=== PATIENT | male | born 1975 | race Caucasian/White ===

== ENCOUNTER 2017-04-03 09:23 | Inpatient (IN) | payer MEDICAID ==
[~2017-04-03] VITALS: Ht 167.6 cm; Wt 81.4 kg
[~2017-04-03 09:23] MED LIST: BACTRIM DS1 TAB PO; CLINDAMYCIN HC300 MG PO; LAC PO; METOPROLOL TART25 M1 PO
--- NOTE | 2017-04-03 09:56 | NUR ---
PT HERE WITH C/C OF HIGH BP. PER PT: PCP RECOMMENDED TO GO TO ER YESTERDAY. PT IS AAOX4, ANSWERS ALL QUESTIONS APPROPRIATELY, FOLLOWS COMMANDS, NO FACIAL DROOP NOTED, EQUAL APRON OPERATOR AND STRENGTH TO EXTREMITIES. DENIES HEADACHE, BLURRY VISION, OR TINNITUS. RESP EVEN AND UNLABORED, RA. DENIES SOB, DENIES CHEST PAIN. DENIES ABD PAIN, N/V/D, OR UTI SYMPTOMS. PT ACCOMPANIED BY FAMILY
--- NOTE | 2017-04-03 10:30 | NUR ---
LAB AT BEDSIDE
--- NOTE | 2017-04-03 10:38 | NUR ---
RADIOLOGY AT BEDSIDE FOR PCXR
--- NOTE | 2017-04-03 10:40 | NUR ---
EMT AT BEDSIDE FOR EKG
[2017-04-03 10:48] LABS: BASOPHIL % 0.4 % (0-2); PLATELET COUNT 169 x10^3mcL (130-400)
[2017-04-03 10:49] LABS: BILIRUBIN TOTAL 0.5 mg/dL (0.20-1.00); CARBON DIOXIDE 18.3 mmol/L (21-32); POTASSIUM SERUM 5.1 mmol/L (3.5-5.1); TOTAL PROTEIN, SERUM 6.3 g/dL (6.4-8.2)
[2017-04-03 10:50] LABS: ALBUMIN 2.3 g/dL (3.4-5.0)
[2017-04-03 10:52] LABS: CREATININE SERUM 5.3 mg/dL (0.7-1.3)
--- NOTE | 2017-04-03 11:27 | NUR ---
PT REMAINS HYPERTENSIVE, OTHERWISE VS STABLE. NAD NOTED. RESP EVEN AND UNLABORED, RA.
--- NOTE | 2017-04-03 11:45 | NUR ---
DR MARQUES MADE AWARE PT REMAINS HYPERTENSIVE. DR GIVES VERBAL ORDER FOR NORMODYNE 10MG IV.
[2017-04-03 12:32] LABS: AMPHETAMINE QUAL UR NONE DETECTED (NEG <=1000)
[2017-04-03 12:51] LABS: microscopic required? YES; urine erythrocyte 3+ (NEGATIVE)
[2017-04-03 13:18] LABS: CHOLESTEROL/HDL RATIO 4.1; PHOSPHOROUS 7.5 mg/dL (2.5-4.9)
--- NOTE | 2017-04-03 13:20 | NUR ---
BED ASSIGNMENT RECEIVED FOR PT. REPORT GIVEN TO JESSICA RICKETTS IN [facility] FOR CONTINUITY OF CARE
[2017-04-03 13:27] LABS: T3 TOTAL 1.1 ng/mL
[2017-04-03 13:30] LABS: FREE T4 0.99 ng/dL (0.76-1.46); FREE THYROXINE INDEX 2.5 ug/dL (1.4-4.5); T4(THYROXINE) 6.4 ug/dL (4.7-13.3)
[2017-04-03 14:38] VITALS: BP 204/129
--- NOTE | 2017-04-03 14:47 | NUR ---
RECEIVED PT FROM ED VIA PRASANTH. ORIENTED PT TO ROOM AND SURROUNDINGS. IV NOTED TO LAC PATENT AND INTACT .TELE 34 PLACED ON PT READING NSR. INSTRUCTED PT ON THE USE OF CALL LIGHT FOR ASSISTANCE. ENDORSED PT TO PRIMARY NURSE JESSICA
--- NOTE | 2017-04-03 15:25 | NUR ---
RESIDENT NOTIFIED TROP 0.20.
--- NOTE | 2017-04-03 15:33 | NUR ---
US RENAL AND ESCITES EVAL COMPLETED. PT SITTING UP HAVING A SNACK.
--- NOTE | 2017-04-03 16:01 | NUR ---
CORRECTION ON PREVIOUS NOTE. PT DID NOT HAVE US RENAL COMPLETED. HE HAD ECHO DONE. WILL HAVE RENAL DOPPLER IN THE AM PT HAS ALREADY EATEN. LORI BP POST HYDRALIZINE PO 192/120 HR 97.
--- NOTE | 2017-04-03 16:03 | NUR ---
SEEN BY DR. CHANDLER. WANTS ANOTHER TROP. BEFORE POSSIBLY STARTING HEPARIN DRIP.
[2017-04-03 16:54] VITALS: BP 192/130
--- NOTE | 2017-04-03 17:46 | NUR ---
SITTING UP IN BED FINISHING DINNER. 1800 TROP DRAWN. NS INFUSING 20 CC HOUR. WEARING SCD'S. DENIES ANY CHEST PAIN. RECEIVING APRESOLINE 10 MG PO Q 6 HOURS FOR ELEVATED BP. RENAL DOPPLER IN AM. NPO AFTER MIDNIGHT. INDEPENDENT W ADL'S. CALL LIGHT WITHIN REACH. ALERT AND ORIENTED. BREATHING FREELY ON RA. TELE# 34 NSR.
[2017-04-03 19:40] VITALS: BP 154/115
--- NOTE | 2017-04-03 19:50 | NUR ---
RECEIVED PATIENT FROM AM RN-BULMARO. PATIENT QUIETLY RESTING IN BED AT THIS TIME. A/OX4 ABLE TO VERBALIZE NEEDS. DENIES ANY PAIN, CHEST PAIN, HEADACHE, DIZZINESS AT THIS TIME. EDEMA TO BLE. IVF INFUSING TO LAC AT 20ML/HR NS. TELE 34 NSR. PATIENT AWARE THAT HE IS TO BE NPO AFTER MIDNIGHT FOR RENAL DOPPLER SCHEDULED TMW MORNING. CALL LIGHT WITHIN REACH AND PATIENT EDUCATED ON HOW TO USE DEVICE. WILL CONTINUE TO MONITOR.
--- NOTE | 2017-04-03 20:34 | NUR ---
SCHEDULED MEDICATIONS ADMINISTERED. PATIENT DENIES ANY PAIN, DIZZINESS, HEADACHE. NO SOB VERBALIZED. NO SWALLOWING DIFFICULTY. CALL LIGHT WITHIN REACH.
[2017-04-03 21:48] VITALS: BP 177/103
--- NOTE | 2017-04-03 22:26 | NUR ---
BLADDER SCAN DONE PER DR. AGUILAR'S ORDERS. NO FLUID NOTED IN BLADDER. ALSO RECEIVED NEW ORDERS
[2017-04-04 00:04] VITALS: BP 158/95
--- NOTE | 2017-04-04 01:34 | NUR ---
PATIENT QUEITLY RESTING IN BED AT THIS TIME. LAST BP 158/95 HR 81, DR. MOULTON INFORMED OF LATEST BP AND SAYS HES OKAY WITH THAT BP AT THIS TIME. WILL CONTINUE TO MONITOR CLOSELU. CALL LIGHT WITHIN REACH.
[2017-04-04 05:26] VITALS: BP 137/88
[2017-04-04 07:11] LABS: CARBON DIOXIDE 16.8 mmol/L (21-32); POTASSIUM SERUM 4.4 mmol/L (3.5-5.1)
[2017-04-04 07:15] LABS: CREATININE SERUM 5.4 mg/dL (0.7-1.3)
--- NOTE | 2017-04-04 07:31 | NUR ---
LAB REPORTED CREATININE 5.4. DELIVERED LAB RESULTS TO DR. Trevor SINGER IN CLASS ROOM. PT WAS SEEN BY DIETITIAN CHIEF, DR. AGUILAR 04/03/17.
--- NOTE | 2017-04-04 08:00 | NUR ---
ALERT AND ORIENTED. SITTING UP IN BED EATING BREAKFAST. DENIES ANY PAIN. BREATHING FREELY ON RA. ABD SOFT AND ROUND. TELE # 34 NSR. STARTED 24 HOUR URINE COLLECTION FOR PROTEIN. INDEPENDENT W/ ADL'S. LST BP 137/88. WILL CONTINUE TO MONITOR. CALL LIGHT WITHIN REACH.
[2017-04-04 08:02] LABS: MAGNESIUM 2.1 mg/dL (1.8-2.4); PHOSPHOROUS 7.9 mg/dL (2.5-4.9)
[2017-04-04 08:11] LABS: BASOPHIL % 0.4 % (0-2); PLATELET COUNT 168 x10^3mcL (130-400)
[2017-04-04 08:26] LABS: RED BLOOD CELLS 2.2 M/mm3 (4.52-5.90)
--- NOTE | 2017-04-04 08:40 | NUR ---
REPORTED H/H 6.04/[address] CANO.
--- NOTE | 2017-04-04 11:11 | NUR ---
PT IS NON COMPLANT WITH URINE COLLECTION. SPOKE WITH DR. RAMACHANDRAN. RECEIVED NEW ORDERS.
[2017-04-04 11:30] VITALS: BP 140/89
[2017-04-04 12:55] VITALS: BP 169/100
[2017-04-04 15:04] LABS: microscopic required? YES; urine erythrocyte 2+ (NEGATIVE)
[2017-04-04 15:10] LABS: CREATININE UR 109.3 mg/dL
[2017-04-04 16:35] VITALS: BP 150/98
--- NOTE | 2017-04-04 17:51 | NUR ---
RESTING QUIETLY AND COMFORTABLY. NS INFUSING 10 CC HOUR. URINE SENT TO LAB FOR STUDIES. RESULTS ARE BACK PLEASE REVIEW. GOOD APPETITE. BRP. LAST BP 150/98 HR 90. NO C/O PAIN. 24 HOUR URINE NOT COLLECTED PT WAS NOT COMPLIANT WITH MEASURING ALL URINE. STAFF RADIATION THERAPIST AWARE. RENAL DOPPLER COMPLETED THIS AM.ECHOGENIC KIDNEYS CONSISTENT WITH MEDICAL RENAL DISEASE.
[2017-04-04 19:30] VITALS: BP 182/115
--- NOTE | 2017-04-04 19:30 | NUR ---
RECEIVED PATIENT BACK FROM AM NETTA. PATIENT QUIETLY RESTING IN BED. TELE 34 SR. DENIES ANY CHEST PAIN AT THIS TIME. ABLE TO VOID FREELY VIA URINAL. PATIENT AWARE OF NEED FOR STRICT I&OS. CALL LIGHT WITHIN REACH. IVF INFUSING TO LAC AT 10ML/HR NS. NO INFILTRATION NOTED.
[2017-04-05] VITALS (7 sets, daily range): BP systolic 128–179; BP diastolic 75–101
--- NOTE | 2017-04-05 02:00 | NUR ---
INFORMED DR. VASQUEZ OF MOST RECENT BP: 147/[address] CHRISTINA LOPES WITH BP AT THIS TIME.
[2017-04-05 05:34] LABS: BASOPHIL % 0.4 % (0-2); PLATELET COUNT 206 x10^3mcL (130-400)
[2017-04-05 05:50] LABS: CALCIUM 7.3 mg/dL (8.5-10.1); CARBON DIOXIDE 18.9 mmol/L (21-32); MAGNESIUM 2.2 mg/dL (1.8-2.4); PHOSPHOROUS 7.8 mg/dL (2.5-4.9); POTASSIUM SERUM 4.5 mmol/L (3.5-5.1)
--- NOTE | 2017-04-05 05:50 | NUR ---
BLADDER SCAN DONE ONLY 41CC OF URINE NOTED. ABD NOTED TO BE DISTENDED AND ROUND. PATIENT DENIES ANY PAIN.
[2017-04-05 05:52] LABS: CREATININE SERUM 5.3 mg/dL (0.7-1.3)
--- NOTE | 2017-04-05 07:20 | NUR ---
ALERT AND ORIENTED. BREATHING FREELY ON RA. DENIES ANY PAIN. TELE # 34 NSR. LAST BP THIS AM 128/75. INDEPENDENT W ADL'S. STRICT I&O'S. URINAL AT BEDSIDE. NEEDS TO BE REMINDED HOW IMPORTANT IT IS TO USE URINAL. CALL LIGHT WITHIN REACH.
--- NOTE | 2017-04-05 18:34 | NUR ---
ALERT AND ORIENTED. NO C/O PAIN. TELE # 34 SR. ABD ROUND. INDEPENDENT W ADL'S. LAST BP 149/79. CONSENT SIGNED FOR RENAL BIOPSY IN AM. NS INFUSING 10 CC HOUR. CALL LIGHT WITHIN REACH.
--- NOTE | 2017-04-05 19:37 | NUR ---
DR. RAMACHANDRAN ([facility]) CONSULTATION DOCTOR IN TO SEE PATIENT.
--- NOTE | 2017-04-05 20:35 | NUR ---
SCHEDULED MEDICATIONS ADMINISTERED. NO SWALLOWING DIFFICULTY. PATIENT CONTINUES TO DENY ANY CHEST PAIN OR SOB. NO DIZZINESS OR HEADACHE NOTED.
--- NOTE | 2017-04-05 22:43 | NUR ---
DR. VASQUEZ AWARE OF CURRENT BP: 164/89 HR:95. NO NEW ORDERS RECEIVED. WILL CONTINUE TO MONITOR.
[2017-04-06 05:43] VITALS: BP 141/81
--- NOTE | 2017-04-06 05:55 | NUR ---
PATIENT QUIETLY RESTING IN BED. BLOOD PRESSURE THIS MORNING STABLE. CONTINUES TO DENY ANY CHEST PAIN. ABD ROUND AND FIRM (DISTENDED). DENIES ANY PAIN. IVF INFUSING TO LAC AT 10ML/HR NS. CALL LIGHT WITHIN REACH AND ALL SAFETY MEASURES IN PLACE. WILL ENDORSE CARE TO AM RN.
[2017-04-06 06:18] LABS: CALCIUM 7.8 mg/dL (8.5-10.1); CARBON DIOXIDE 16.9 mmol/L (21-32); MAGNESIUM 2.2 mg/dL (1.8-2.4); PHOSPHOROUS 7.8 mg/dL (2.5-4.9); POTASSIUM SERUM 4.3 mmol/L (3.5-5.1)
[2017-04-06 06:20] LABS: BASOPHIL % 0.5 % (0-2); PLATELET COUNT 195 x10^3mcL (130-400); RED CELL DISTRIBUTION WIDTH 15.1 % (11.5-14.5)
[2017-04-06 06:39] LABS: CREATININE SERUM 5.4 mg/dL (0.7-1.3)
--- NOTE | 2017-04-06 08:00 | NUR ---
RCEIVED PATIENT AWAKE AND ANXIOUS AND STATES WANTS TO GO [facility] TODAY. AYDE LILLY BEEN NPO FOR NEDDLE BIOPSY AND PATIENT HAS BEEN SEEN AND THE TESTING PLANNE FOR TODAY. LUNGS ARE DIMINISHED AND BOWEL SOUNDS ARE HYPOACTIVE AND PATIENT HAS DISTENDED ABDOMEN AND FIRM. PATEINT DENIES PAIN AT THIS TIME. NOTED EDEMA FO TRACE TO THE LOWER EXTREMITIES AND SOME JAUNDICE APPEARANCE FO THE SKIN. PATIENT IS AMBULATORY AND VITALS AT THIS TIME AT 97.9, 91, 18, 140/81, 97%. PATIEN THAS H AND H AT 7.3/23, NA AT 134, BUN AT 39.0, AND CREATININE AT 5.4. AYDE ESTELLE BEEN WITH HISTRY OF HTN AND THE BP HAS BEEN NOTED VERY HIGH ON PREVIOUS SHIFTS AND IS ONHYDROLIZINE AND RECEIVES THREE TIMES A DAY ON THIS SHIFT AYDE TON ATIVAN ORDERED FOR ALCOHOL WITHDRAWL AND HISTORY OF ETOH ABUSE. PATIENT REMAINS NPO AT THIS TIME FOR THE TESTING.
--- NOTE | 2017-04-06 08:40 | NUR ---
SEEN BY DR ANDERSON AND STAFF AND PLAN OF CARE DISCUSSED.
[2017-04-06 09:28] VITALS: BP 149/90
--- NOTE | 2017-04-06 11:31 | NUR ---
RECEIVED A CALL FROM RADIOLOGY AND THE TEST FOR NEEDLE BIOPSY WILL NOT BE DONE TILL TOMORROW DUE TO THE NEED FOR PATHOLOGIST TO BE HERE AT THE TIME OF TESTING. ADVISED THE CHARGE ADN CALLED THE PHP PROGRAMMER AND ADVISED OF THE PATHOLOGIST WILL NOT BE AVAILABLE TILL TOMORROW AT 11:00AM. PER THE PHP PROGRAMMER THE PATIENT WILL BE ALLOWED TO EAT TODAY. PATIENT STATES HE IS VERY HUNGERY.
--- NOTE | 2017-04-06 14:48 | NUR ---
IV WAS LAEKING TO RESTART AT [facility] SITE. PATIENT TOLERATED LUNCH.
--- NOTE | 2017-04-06 15:30 | NUR ---
NEPHROLOGY IN TO SEE AND WANTS A PARENTESIS PIRIOR TO THE NEEDLE BIOPSY OF THE KIDNEY THE COMMUNITY ENGAGEMENT COORDINATOR SPOME WITH THE MOUNT LOADER DR HANCOCK. SO MOUNT LOADER IS AWARE OF THE INDICATION FOR THE PROCEDURE PRIOR TO KIDNEY BIOPSY. AWAITING ORDERS AT THIS TIME PLAN IS FOR THE BIOPSY FOR AROUND 11:00AM TOMORROW.
--- NOTE | 2017-04-06 17:28 | NUR ---
PATIENT IS COMFORTABLE AT THIS TIME. PATIENT HAS NOT COMPLAINED OF PAIN TO HE THE ABDOMEN. TOLERATED DIET AND FLUIDS WELL. WILL CONTINUE TO MONITOR.
[2017-04-06 17:45] VITALS: BP 176/100
--- NOTE | 2017-04-06 20:00 | NUR ---
RECEIVED PT IN BED AWAKE, ALERT AND ORIENTED. TELE #34 SR ON THE MONITOR WITH HR OF 90. PULSES PALPABLE, BLE NOTED +2. LUNGS CLEAR AND PT ON ROOM AIR. BOWEL SOUNDS PRESENT. ABOMEN IS FIRM AND DISTENDED. PT VOIDS WITHOUT DIFFICULTY. PT AMBULATES. SKIN INTACT. NO C/O PAIN NOTED AT THIS TIME. IV INFUSING WELL WITH NO INFILTRATION NOTED. INSTRUCTED PT TO USE CALL LIGHT IF NEEDS ASSISTANCE WITH ANYTHING. SEE VASCULAR RADIOLOGIST FOR FURTHER DETAILS. WILL MONITOR PT. CALL LIGHT IN REACH. WILL MONITOR.
--- NOTE | 2017-04-06 21:15 | NUR ---
PAGED DR VASQUEZ REGARDING PT BLOOD PRESSURE 175/105, AWAITING CALL BACK AT THIS TIME.
--- NOTE | 2017-04-06 21:51 | NUR ---
DR CALLED BACK AND NO NEW ORDERS AT THIS TIME. DR STATED TO RECHECK BP ONE HOUR AFTER BP MEDICATIONS WERE GIVEN AND IF STILL ELEVATED HE MAY THEN PUT IN NEW ORDERS. WILL MAKE DR AWARE OF RESULTS AT THAT TIME.
[2017-04-06 22:04] VITALS: BP 179/105
--- NOTE | 2017-04-06 22:54 | NUR ---
MADE DR AWARE OF BP 173/[address] STATED HE WOULD PLACE ORDER FOR HYDRALAZINE IVP. WILL PROVIDE TO PATEINT WHEN MADE AVAILABLE.
--- NOTE | 2017-04-06 23:35 | NUR ---
PT RECEIVED HYDRALAZINE IVP AT THIS TIME WILL MONITOR BP.
[2017-04-07] VITALS (9 sets, daily range): BP systolic 135–180; BP diastolic 77–97
--- NOTE | 2017-04-07 | NUR ---
PT BP IS NOW 165/91, WILL RECHECK IN [address] AWARE IF CONTINUES TO BE ELEVATED.
--- NOTE | 2017-04-07 00:29 | NUR ---
PT BP IS 157/92 AND PT IS COMFORTABLE SLEEPING IN BED. PT STATES "CAN YOU PLEASE NOT BOTHER ME ANYMORE, I AM TRYING TO SLEEP". PT BP IMPROVING WILL CHECK BP AGAIN IN THE A.M. NO DISTRESS NOTED. CALL LIGHT IN REACH.
--- NOTE | 2017-04-07 04:00 | NUR ---
PT SLEEPING COMFORTABLY AT THIS TIME, NO DISTRESS NOTED. WILL MONITOR.
[2017-04-07 06:18] LABS: CALCIUM 7.7 mg/dL (8.5-10.1); CARBON DIOXIDE 18.4 mmol/L (21-32); POTASSIUM SERUM 4.4 mmol/L (3.5-5.1)
[2017-04-07 06:46] LABS: CREATININE SERUM 5.5 mg/dL (0.7-1.3)
--- NOTE | 2017-04-07 06:51 | NUR ---
PT CONTINUES TO REST IN BED AT THIS TIME, NO DISTRESS NOTED. NEW ORDER FOR CONSENT TO BE SIGNED FOR PARACENTISIS. CONSENT SIGNED AND CHECKLIST DONE , PLACED IN THE CHART. PARACENTISIS KIT PLACED AT THE BEDSIDE ORDERED. PT IS STABLE AND WILL ENDORSE TO THE A.M SHIFT NURSE.
[2017-04-07 07:08] LABS: BASOPHIL % 0.6 % (0-2); PLATELET COUNT 179 x10^3mcL (130-400)
[2017-04-07 07:18] LABS: RED CELL DISTRIBUTION WIDTH 14.6 % (11.5-14.5)
--- NOTE | 2017-04-07 07:18 | NUR ---
PT CRITICAL VALUE H/H 6.[address] AND MAKE HIM AWARE. WILL ENDORSE TO AM SHIFT.
--- NOTE | 2017-04-07 07:30 | NUR ---
RECEIVED PT. IN BED A/A/O X3. NO SOB, NO N/V NOTED. DENIES ANY PAIN AT THIS TIME. IV H/L NOTED TO R FA. SCD TO BLE MAINTAINED. BED IN LOW POS., CALL LIGHT WITHIN REACH. SIDE RAILS UP X3.
--- NOTE | 2017-04-07 08:22 | NUR ---
REPORTED H/H (.01/27) TO DR. HANCOCK (DO EYELET PUNCH OPERATOR). NO FURTHER ORDER RECEIVED AT THIS TIME.
--- NOTE | 2017-04-07 08:33 | NUR ---
DR. MCNALLY, THE RESIDENTS, CHARGE NURSE, AND ATTENDING NURSE AT BEDSIDE. CAREPLAN DISCUSSED WITH PT. ALL QUESTIONS ANSWERED.
--- NOTE | 2017-04-07 09:01 | NUR ---
SCHEDULED RENAL BIOPSY FOR 11 AM. HGB/HCT THIS AM 6.01/27. PER PATIENT'S NURSE A PARACENTESIS MUST BE DONE PRIOR TO BIOPSY. NOTIFIED DR MADHAVIR WHO STATES WOULD NEED BLOOD TRANSFUSION PRIOR TO RENAL BIOPSY. PROCEDURE PLACED ON HOLD, NOTIFIED PATIENT'S NURSE SAMAN AND PATHOLOGY DEPT TO NOTIFY DR MCRAE R/T NEED TO RESCHEDULE RENAL BIOPSY.
--- NOTE | 2017-04-07 13:23 | NUR ---
DR. CRUZ, DR. TANG, AND DR. JUNE AT BEDSIDE PERFORMING PARACENTESIS.
--- NOTE | 2017-04-07 14:14 | NUR ---
PARACENTESIS PROCEDURE COMPLETED. PARACENTESIC FLUID WITHDRAWN = 4000CC. B/P= 180/97, P= 88, O2 SAT.= 98% (RA), TEMP.= 98.9, R.R.= 18. WILL CONTINUE TO MONITOR. BANDAGE APPLIED TO RLQ OF ABDOMEN (PARACENTESIC PUNCTURE SITE) BY DR. CRUZ.
--- NOTE | 2017-04-07 15:33 | NUR ---
Initial Nutrition Assessment Dx: Accelerated HTN, Acute Onset Renal Failure PMHx: HTN (non-controlled), LE edema, non-compliancy, alcohol dependence PSHx: None Labs: BG 86, BUN 38 H, Cr 5.5 H, Phosphorous 7.5 H, H/H 6.6/20 L; (04/04) Troponin 0.182 H; (04/03) ALB 2.3 L, AST 48 H, Triglycerides 231 H, A1C <3.8 L Meds: Ativan, Colace, ferrous sulfate, folic acid, Lasix, oscal with vitamin D, phoslo, sodium bicarbonate, theragran-M, vitamin B1, zofran Current Diet Order: NPO except meds (x1 day) (Renal Biopsy) Prior Diet Order: Renal PO Intakes: (04/05) B: 80%, L: 100% Ht: 66", 5' 6". Wt: 179 lb, 81 kg. BMI: 29 kg/m2 (Overweight) IBW: 142 lb, 65 kg. %IBW: 125%. Adj BW: 151 lb, 69 kg. UBW: 165 lb, 75 kg. Age: 41 Y/O M Food Allergies: None Skin: Intact. David 20. Edema: None GI: Active bowel sounds. Last BM 04/06. Pt found with hypertensive urgency 202/122 on admission per doctor's notes. Per doctor's progress note 04/07, met with Dr. Lopez Radio Communications Mechanician who scheduled renal biopsy for today, indicated prior to procedure, would be best to perform paracentesis to both relieve pt's symptoms and establish cause of ascitic fluid; Pt with hypertensive urgency 202/122 on admission, down to 142/82 today, CKD Stage 5, GFR 12 - Per Dr. Lopez, recommends BP control and no dialysis at this time, Dr. Fisher concerned regarding rapidly progressive glomerulonephritis, possible ACSDHF with BNP 980, ascites likely secondary to liver cirrhosis with transaminitis AST 48. Per nursing notes, pt would require blood transfusion prior to renal biopsy, procedure placed on hold, notified pt's RN and pathology department to notify doctor when need to reschedule renal biopsy. Pt is mostly Kosovan-speaking, however, does understand some Belarusian. Cap Parts Cutter assisted RD in translation. Pt was seen resting in bed, just underwent paracentesis procedure, stated that he feels much better, able to breathe better at this time. Pt reported good PO intakes prior, stated that he knows he needs to be on a restricted diet, however, is non-compliant with the diet. Spoke with Dr. Lopez, stated that pt does not need dialysis at this time, does need dietary education. RD acknowledged. Problem with: N: None. V: None. D: None. C: None. Problems with: Chewing: None. Swallowing: None. Prior Appetite: Good Recent Weight Change: +14 lb. % Weight Change: 8.5% weight gain within a few weeks due to fluid accumulation in stomach Vitamin/Supplement use: Per pt, stated he takes "vitamins to cleanse his stomach", unable to specify Diet at Home: Regular, no red meat, cooks with lard Physical Activity: None per pt; Pt reported will want to start exercising Education: Pt stated that he had nutrition education a long time ago but non-compliant with diet. RD provided nutrition education on renal diet with no dialysis, discussed low sodium food options, exercise, and adherence to dietary restrictions. Handouts in Kosovan provided. Pt acknowledged and verbalizes understanding. Estimated Nutritional Needs Based CBW 179 lb, 81 kg. Energy: 8048-0138 kcal/day (25-30 kcal/kg for Maintenance) Protein: 49-65 gm/day (0.6-0.8 gm/kg for Elevated Renal Labs, CKD Stage 5 not on Dialysis) Fluids: Per MD/Doctor for Ascites Nutrition Diagnosis 1. Altered nutrition related labs related to impaired renal function as evidenced by elevated renal labs, BUN 38, Cr 5.5, Phosphorous 7.5 2. Self-monitoring deficit related to unwilling or disinterested in tracking progress as evidenced by pt acknowledging non-compliance to dietary restrictions Intervention 1. Consider advance to Renal, Low Phosphorous, PRO 50 gm diet if/when medically appropriate. 2. Consider Suplena BID (850 kcal, 21 gm protein) if PO intakes <50%. Monitor/Evaluate Goal: NPO <5-7 days; Diet Advancement Monitor: NPO status, diet advancement, labs (renal), skin integrity, GI function F/U in 3-5 days as MODERATE risk (04/10-04/12)
[2017-04-07 15:40] LABS: cnab c-anca <1:20 titer (Neg:<1:20); cnab p-anca <1:20 titer (Neg:<1:20)
[2017-04-07 15:40] LABS: microalbumin:creatinine ratio 2175.9 (0.0-30.0)
--- NOTE | 2017-04-07 15:40 | NUR ---
PARACENTESIC FLUID COLLECTED AND SENT TO LAB. FOR ALL ORDERED TESTS. 1 L OF PARACENTESIC FLUID ALSO SENT TO LAB. FOR STORAGE.
--- NOTE | 2017-04-07 16:00 | NUR ---
PRBC STARTED. B/P= 163/95, P= 97, R.R.= 18, TEMP.= 99.3, O2 SAT.= 98% (RA).
[2017-04-07] MEDS ORDERED: LIPI10 PO (18:42)
[2017-04-07] MEDS ORDERED: ADA30 PO (18:43)
[2017-04-07] MEDS ORDERED: TOP50 PO (18:43)
[2017-04-07 19:01] LABS: APPEARANCE FLUID HAZY; COLOR FLUID YELLOW; SOURCE FLUID PARACENTESIS; WBC FLUID 63 /cumm
[2017-04-07 19:03] LABS: LYMPHOCYTE FLUID 90 %; MONOCYTE FLUID 9 %; RBC FLUID 175 /cumm
--- NOTE | 2017-04-07 19:20 | NUR ---
PRBC COMPLETED. B/P= 170/96, P= 94, R.R.= 18, T= 98.6, O2 SAT.= 100% (RA). NO TRANSFUSION RXN NOTED.
--- NOTE | 2017-04-07 20:04 | NUR ---
SHIFT REASSESSMENT DONE.PATIENT ALERT AND ORIENTED,PRBC WAS JUST DONE,COMPLETED BY SAMAN,ALL PO MEDS POST TRANSFUSION JUST GIVEN,SWALLOWS WELL.PATIENT CBC SCHEDULED NOW AND DONE,PATIENT WANTING TO GO HOME,REMINDED WE HAVE TO WAIT FOR RESULT OF CBC THE PHYSICIAN WILL DECIDE,TELE 354 SR.AMBULATORY,STATED HE HAD BM THIS AM.EDEMA LOWER EXT,HAD PARACENTESIS TODAY 4 LITERS OUT.HTN HX,WILL GIVE MEDS WHEN ITS DUE.CALL LITE IN REACH.
[2017-04-07 20:34] LABS: BASOPHIL % 0.6 % (0-2); PLATELET COUNT 148 x10^3mcL (130-400)
[2017-04-07 20:52] LABS: RED CELL DISTRIBUTION WIDTH 15.6 % (11.5-14.5)
--- NOTE | 2017-04-07 21:28 | NUR ---
PATIENT ALL PM MEDS GIVEN,HTN MES AND ALL.ALSO HGB AND HCT AFTER 1 UNIT PRBC NOW IS 7.5/ FROM 7.3.PATIENT STATED THAT HE HAS HIS CAR IN THE PARKING LOT AND WILL DRIVE SELF.PAPERWORKS BEING DONE AT THIS TIME BY PIPPA.KarenSAYS HE LIVE IN [place].
--- NOTE | 2017-04-07 21:44 | NUR ---
PAPERWORKS DONE.READY TO WHEEL DOWN.ALL PAPERWORKS GIVEN.
--- NOTE | 2017-04-07 21:58 | NUR ---
2150 PATIENT DC AT THIS TIME VIA W/C,WHEELED BY SAJAN,IN STABLE CONDITION.
[2017-04-08 11:06] LABS: ANTI-GLOMERULAR ANTIBODIES 3 units (0-20); COMPLEMENT C3 66 mg/dL (82-167); COMPLEMENT C4 19 mg/dL (14-44)
[2017-04-09 04:23] LABS: CK-BB 0 % (0); CK-MB 0 % (0-3); CK-MM 100 % (97-100); MACRO TYPE 1 0 % (Not Observed); MACRO TYPE 2 0 % (Not Observed)
== END 2017-04-07 21:54 | disposition home or self-care (01) | DRG 194 ==
LOC: ED 09:23 → DU 11:38
PROVIDERS: Emergency Medicine; Family Medicine; Internal Medicine; Internal Medicine Nephrology; ADMIT Family Medicine
PROC: 0W9G3ZZ Drainage of Peritoneal Cavity, Percutaneous Approach (ICD-10-PCS; principal; 2017-04-07)
DX: I13.2 Hypertensive heart and chronic kidney disease with heart failure and with stage 5 chronic kidney disease, or end stage renal disease (principal); N17.0 Acute kidney failure with tubular necrosis; E43 Unspecified severe protein-calorie malnutrition; I50.43 Acute on chronic combined systolic (congestive) and diastolic (congestive) heart failure; N18.5 Chronic kidney disease, stage 5; I24.8 Other forms of acute ischemic heart disease; E87.1 Hypo-osmolality and hyponatremia; E83.51 Hypocalcemia; E78.1 Pure hyperglyceridemia; E83.39 Other disorders of phosphorus metabolism; I16.0 Hypertensive urgency; K70.31 Alcoholic cirrhosis of liver with ascites; F10.10 Alcohol abuse, uncomplicated; D64.89 Other specified anemias; Z68.29 Body mass index [BMI] 29.0-29.9, adult; Z91.14 Patient's other noncompliance with medication regimen
CPT/HCPCS: 83516; 83520; 83880; 84439; 86256; G0480; J0360; J3490; J7030; J7040; P9016; Q0092; Q0163

== ENCOUNTER 2017-04-08 17:24 | Emergency (ER) | payer MEDICAID ==
[~2017-04-08] VITALS: Ht 172.7 cm; Wt 79.4 kg
[~2017-04-08 17:24] MED LIST changes: +ADA30 PO; +LIPI10 PO; +TOP50 PO
[2017-04-08 19:32] VITALS: BP 151/81
== END 2017-04-08 19:32 | disposition home or self-care (01) ==
LOC: ED 17:24
DX: K91.89 Other postprocedural complications and disorders of digestive system (principal); K70.31 Alcoholic cirrhosis of liver with ascites
CPT/HCPCS: J2001

== ENCOUNTER 2017-06-03 20:46 | Inpatient (IN) | payer MEDICAID ==
[~2017-06-03] VITALS: Ht 162.6 cm; Wt 80.7 kg
[2017-06-03 21:53] LABS: PLATELET COUNT 318 x10^3mcL (130-400); RED CELL DISTRIBUTION WIDTH 14.4 % (11.5-14.5)
[2017-06-03 22:08] LABS: MONOCYTE 5 % (0-7); SEGMENTED NEUTROPHILS 88 % (37-75)
[2017-06-03 22:09] LABS: burr cell (echinocyte) 1+; rbc morphology (normal/abnorm) ABNORMAL (NORMAL)
[2017-06-03] MEDS ORDERED: LIPI20 PO (22:11)
[2017-06-03] MEDS ORDERED: NIFEDICAL XL30 MG PO (22:11)
[2017-06-03] MEDS ORDERED: METOPROLOL SUCC50 M2 PO (22:11)
[2017-06-03 22:38] LABS: BILIRUBIN TOTAL 0.35 mg/dL (0.20-1.00); POTASSIUM SERUM 4.9 mmol/L (3.5-5.1); TOTAL PROTEIN, SERUM 7.7 g/dL (6.4-8.2)
[2017-06-03 22:39] LABS: ALBUMIN 3.3 g/dL (3.4-5.0)
[2017-06-03 22:50] LABS: CALCIUM 5.2 mg/dL (8.5-10.1); CARBON DIOXIDE 6.8 mmol/L (21-32); CREATININE SERUM 16.5 mg/dL (0.7-1.3)
[2017-06-04] VITALS (21 sets, daily range): BP systolic 42–149; BP diastolic 23–100
[2017-06-04 00:39] LABS: CALCIUM 6.7 mg/dL (8.5-10.1); POTASSIUM SERUM 3.6 mmol/L (3.5-5.1)
[2017-06-04 01:08] LABS: CARBON DIOXIDE 7.1 mmol/L (21-32); CREATININE SERUM 15.8 mg/dL (0.7-1.3)
[2017-06-04 04:46] LABS: MAGNESIUM 2.1 mg/dL (1.8-2.4)
[2017-06-04 04:47] LABS: PHOSPHOROUS 13.8 mg/dL (2.5-4.9)
[2017-06-04 05:53] LABS: BASOPHIL % 0.2 % (0-2); PLATELET COUNT 336 x10^3mcL (130-400)
[2017-06-04 05:59] LABS: CALCIUM 6.1 mg/dL (8.5-10.1); CARBON DIOXIDE 11.2 mmol/L (21-32); POTASSIUM SERUM 4.2 mmol/L (3.5-5.1)
[2017-06-04 06:00] LABS: RED CELL DISTRIBUTION WIDTH 14.9 % (11.5-14.5)
[2017-06-04 06:03] LABS: rbc morphology (normal/abnorm) ABNORMAL (NORMAL)
[2017-06-04 06:13] LABS: CREATININE SERUM 15.6 mg/dL (0.7-1.3)
[2017-06-04 11:26] LABS: PLATELET COUNT 330 x10^3mcL (130-400); RED CELL DISTRIBUTION WIDTH 14.6 % (11.5-14.5)
[2017-06-04 11:52] LABS: BAND NEUTROPHIL 4 % (0-10); BASOPHIL 0 % (0-2); MONOCYTE 5 % (0-7); SEGMENTED NEUTROPHILS 84 % (37-75); rbc morphology (normal/abnorm) ABNORMAL (NORMAL)
[2017-06-04 11:54] LABS: PLATELET MORPHOLOGY LARGE PLATELET SEEN; burr cell (echinocyte) 1+; schistocyte (helmet cell) 1+
[2017-06-04 17:27] LABS: CARBON DIOXIDE 12.8 mmol/L (21-32); POTASSIUM SERUM 4.2 mmol/L (3.5-5.1)
[2017-06-04 17:42] LABS: MAGNESIUM 1.9 mg/dL (1.8-2.4)
[2017-06-04 17:57] LABS: PHOSPHOROUS 12.8 mg/dL (2.5-4.9)
[2017-06-04 23:05] LABS: CARBON DIOXIDE 25.8 mmol/L (21-32)
[2017-06-04 23:25] LABS: MAGNESIUM 1.4 mg/dL (1.8-2.4); PHOSPHOROUS 6.5 mg/dL (2.5-4.9)
[2017-06-04 23:30] LABS: CREATININE SERUM 8.9 mg/dL (0.7-1.3); POTASSIUM SERUM 2.3 mmol/L (3.5-5.1)
[2017-06-05] VITALS (18 sets, daily range): BP systolic 97–116; BP diastolic 59–77
[2017-06-05 04:20] LABS: CARBON DIOXIDE 21.4 mmol/L (21-32); MAGNESIUM 1.9 mg/dL (1.8-2.4); PHOSPHOROUS 7.3 mg/dL (2.5-4.9)
[2017-06-05 04:21] LABS: POTASSIUM SERUM 2.5 mmol/L (3.5-5.1)
[2017-06-05 04:22] LABS: CALCIUM 5.6 mg/dL (8.5-10.1); CREATININE SERUM 9.4 mg/dL (0.7-1.3)
[2017-06-05 08:09] LABS: POTASSIUM SERUM 3.2 mmol/L (3.5-5.1)
[2017-06-05 08:12] LABS: CREATININE SERUM 9.5 mg/dL (0.7-1.3)
[2017-06-05 08:14] LABS: CALCIUM 5.3 mg/dL (8.5-10.1)
[2017-06-05 08:18] LABS: MAGNESIUM 1.9 mg/dL (1.8-2.4); PHOSPHOROUS 7.5 mg/dL (2.5-4.9)
[2017-06-05 09:02] LABS: RED CELL DISTRIBUTION WIDTH 14.3 % (11.5-14.5)
[2017-06-05 09:15] LABS: PLATELET COUNT 71 x10^3mcL (130-400)
[2017-06-05 09:52] LABS: BAND NEUTROPHIL 5 % (0-10); BASOPHIL 0 % (0-2); MONOCYTE 6 % (0-7); SEGMENTED NEUTROPHILS 84 % (37-75)
[2017-06-05 09:53] LABS: PLATELET MORPHOLOGY PLATELETS DECREASED; rbc morphology (normal/abnorm) ABNORMAL (NORMAL)
[2017-06-05 09:54] LABS: burr cell (echinocyte) 1+
[2017-06-05 09:55] LABS: schistocyte (helmet cell) 1+
[2017-06-05 12:30] LABS: BASOPHIL % 0.2 % (0-2); RED CELL DISTRIBUTION WIDTH 14.5 % (11.5-14.5)
[2017-06-05 12:31] LABS: PLATELET COUNT 80 x10^3mcL (130-400)
[2017-06-05 12:40] LABS: MAGNESIUM 1.8 mg/dL (1.8-2.4); PHOSPHOROUS 7.3 mg/dL (2.5-4.9)
[2017-06-05 12:44] LABS: burr cell (echinocyte) 1+; rbc morphology (normal/abnorm) ABNORMAL (NORMAL); schistocyte (helmet cell) 1+
[2017-06-05 16:59] LABS: MAGNESIUM 1.9 mg/dL (1.8-2.4)
[2017-06-05 20:26] LABS: MAGNESIUM 1.9 mg/dL (1.8-2.4); PHOSPHOROUS 8.4 mg/dL (2.5-4.9)
[2017-06-05 20:41] LABS: SOURCE FLUID PANCREATIC
[2017-06-05 20:42] LABS: APPEARANCE FLUID HAZY; COLOR FLUID PALE YELLOW; LYMPHOCYTE FLUID 37 %; MONOCYTE FLUID 44 %
[2017-06-05 20:45] LABS: WBC FLUID 50 /cumm
[2017-06-05 20:46] LABS: RBC FLUID 460 /cumm
[2017-06-06] VITALS (18 sets, daily range): BP systolic 114–173; BP diastolic 66–112
[2017-06-06 06:42] LABS: CARBON DIOXIDE 18.6 mmol/L (21-32); MAGNESIUM 1.9 mg/dL (1.8-2.4); POTASSIUM SERUM 3.1 mmol/L (3.5-5.1)
[2017-06-06 06:58] LABS: CALCIUM 4.8 mg/dL (8.5-10.1); CREATININE SERUM 10.6 mg/dL (0.7-1.3)
[2017-06-06 07:59] LABS: BASOPHIL % 0.1 % (0-2); RED CELL DISTRIBUTION WIDTH 14.4 % (11.5-14.5)
[2017-06-06 08:18] LABS: PLATELET COUNT 74 x10^3mcL (130-400)
[2017-06-06 08:21] LABS: burr cell (echinocyte) 1+; rbc morphology (normal/abnorm) ABNORMAL (NORMAL); schistocyte (helmet cell) 1+
[2017-06-07] VITALS (16 sets, daily range): BP systolic 124–178; BP diastolic 78–101; Ht 162.6 cm; Wt 80.7 kg
[2017-06-07 05:11] LABS: BILIRUBIN TOTAL 0.34 mg/dL (0.20-1.00); CARBON DIOXIDE 24.7 mmol/L (21-32); MAGNESIUM 1.6 mg/dL (1.8-2.4); PHOSPHOROUS 5.1 mg/dL (2.5-4.9)
[2017-06-07 05:12] LABS: RED CELL DISTRIBUTION WIDTH 14.4 % (11.5-14.5)
[2017-06-07 05:13] LABS: ALBUMIN 2.3 g/dL (3.4-5.0); TOTAL PROTEIN, SERUM 5.2 g/dL (6.4-8.2)
[2017-06-07 05:14] LABS: POTASSIUM SERUM 2.7 mmol/L (3.5-5.1)
[2017-06-07 05:15] LABS: BASOPHIL % 0 % (0-2); CALCIUM 5.8 mg/dL (8.5-10.1); CREATININE SERUM 7.6 mg/dL (0.7-1.3); PLATELET COUNT 62 x10^3mcL (130-400)
[2017-06-07 05:35] LABS: rbc morphology (normal/abnorm) ABNORMAL (NORMAL); tear drop cell (dacryocyte) 1+
[2017-06-08 03:56] VITALS: BP 130/84
[2017-06-08 05:27] LABS: BASOPHIL % 0.2 % (0-2); RED CELL DISTRIBUTION WIDTH 14.3 % (11.5-14.5)
[2017-06-08 05:29] LABS: PLATELET COUNT 96 x10^3mcL (130-400)
[2017-06-08 05:46] LABS: CARBON DIOXIDE 22.7 mmol/L (21-32); MAGNESIUM 2.8 mg/dL (1.8-2.4); PHOSPHOROUS 6.4 mg/dL (2.5-4.9); POTASSIUM SERUM 3.5 mmol/L (3.5-5.1)
[2017-06-08 05:51] LABS: CALCIUM 5.8 mg/dL (8.5-10.1); CREATININE SERUM 8.9 mg/dL (0.7-1.3)
[2017-06-08 07:39] VITALS: BP 119/71
[2017-06-08 12:06] VITALS: BP 152/84
[2017-06-08 15:50] VITALS: BP 154/85
[2017-06-08 22:03] VITALS: BP 145/79
[2017-06-09 05:54] VITALS: BP 133/76
[2017-06-09 06:50] LABS: CALCIUM 6.5 mg/dL (8.5-10.1); CARBON DIOXIDE 24.9 mmol/L (21-32); MAGNESIUM 2.3 mg/dL (1.8-2.4); PHOSPHOROUS 4.9 mg/dL (2.5-4.9)
[2017-06-09 06:57] LABS: POTASSIUM SERUM 2.8 mmol/L (3.5-5.1)
[2017-06-09 07:41] LABS: BASOPHIL % 0.2 % (0-2); PLATELET COUNT 110 x10^3mcL (130-400); RED CELL DISTRIBUTION WIDTH 14.4 % (11.5-14.5)
[2017-06-09 09:46] VITALS: BP 131/65
[2017-06-09 13:55] VITALS: BP 130/76
[2017-06-09 17:12] VITALS: BP 117/64
[2017-06-09 21:20] VITALS: BP 139/86
[2017-06-10 06:05] LABS: BASOPHIL % 0.1 % (0-2); RED CELL DISTRIBUTION WIDTH 14.1 % (11.5-14.5)
[2017-06-10 06:06] VITALS: BP 143/76
[2017-06-10 06:20] LABS: CALCIUM 6.2 mg/dL (8.5-10.1); CARBON DIOXIDE 24.5 mmol/L (21-32); MAGNESIUM 2.3 mg/dL (1.8-2.4); PHOSPHOROUS 5.2 mg/dL (2.5-4.9); POTASSIUM SERUM 3.3 mmol/L (3.5-5.1)
[2017-06-10 06:27] LABS: CREATININE SERUM 8.2 mg/dL (0.7-1.3)
[2017-06-10 06:45] LABS: PLATELET COUNT 113 x10^3mcL (130-400)
[2017-06-10 09:28] VITALS: BP 151/89
[2017-06-10 17:33] VITALS: BP 178/93
[2017-06-10 18:42] VITALS: BP 158/84
[2017-06-10 21:10] VITALS: BP 165/93
[2017-06-11 05:34] VITALS: BP 165/88
[2017-06-11 06:44] LABS: RED CELL DISTRIBUTION WIDTH 12.8 % (11.5-14.5)
[2017-06-11 06:46] LABS: BILIRUBIN TOTAL 0.2 mg/dL (0.20-1.00); CALCIUM 6.4 mg/dL (8.5-10.1); CARBON DIOXIDE 23.2 mmol/L (21-32); PHOSPHOROUS 4.5 mg/dL (2.5-4.9); POTASSIUM SERUM 3.6 mmol/L (3.5-5.1)
[2017-06-11 06:47] LABS: PLATELET COUNT 93 x10^3mcL (130-400)
[2017-06-11 07:07] LABS: ALBUMIN 2.1 g/dL (3.4-5.0); TOTAL PROTEIN, SERUM 5.1 g/dL (6.4-8.2)
[2017-06-11 07:08] LABS: CHOLESTEROL/HDL RATIO 2.4; CREATININE SERUM 6.9 mg/dL (0.7-1.3)
[2017-06-11 09:07] VITALS: BP 167/91
[2017-06-11 09:09] LABS: rbc morphology (normal/abnorm) ABNORMAL (NORMAL)
[2017-06-11 13:25] VITALS: BP 161/86
[2017-06-11 17:23] VITALS: BP 188/98
[2017-06-11 20:41] VITALS: BP 172/93
[2017-06-12] VITALS (7 sets, daily range): BP systolic 140–167; BP diastolic 77–95
[2017-06-12 06:08] LABS: BASOPHIL % 0.1 % (0-2); RED CELL DISTRIBUTION WIDTH 13.6 % (11.5-14.5)
[2017-06-12 06:15] LABS: BILIRUBIN DIRECT 0.1 mg/dL (0.0-0.2); BILIRUBIN TOTAL 0.4 mg/dL (0.20-1.00); CALCIUM 6.3 mg/dL (8.5-10.1); PHOSPHOROUS 4.5 mg/dL (2.5-4.9); POTASSIUM SERUM 3.7 mmol/L (3.5-5.1)
[2017-06-12 06:26] LABS: ALBUMIN 2.4 g/dL (3.4-5.0); TOTAL PROTEIN, SERUM 5.5 g/dL (6.4-8.2)
[2017-06-12 06:28] LABS: CREATININE SERUM 8.3 mg/dL (0.7-1.3)
[2017-06-12 06:48] LABS: PLATELET COUNT 81 x10^3mcL (130-400)
[2017-06-13 05:49] VITALS: BP 147/74
[2017-06-13 06:14] LABS: BASOPHIL % 0.6 % (0-2); RED CELL DISTRIBUTION WIDTH 14.5 % (11.5-14.5)
[2017-06-13 06:29] LABS: CALCIUM 6.4 mg/dL (8.5-10.1); CARBON DIOXIDE 25.9 mmol/L (21-32); PHOSPHOROUS 4.1 mg/dL (2.5-4.9); POTASSIUM SERUM 3.7 mmol/L (3.5-5.1)
[2017-06-13 06:38] LABS: CREATININE SERUM 7.2 mg/dL (0.7-1.3)
[2017-06-13 07:00] LABS: PLATELET COUNT 94 x10^3mcL (130-400)
[2017-06-13 08:08] LABS: rbc morphology (normal/abnorm) ABNORMAL (NORMAL)
[2017-06-13 09:00] VITALS: BP 151/87
[2017-06-13 09:56] VITALS: BP 151/87
[2017-06-13 13:23] VITALS: BP 152/88
[2017-06-13 17:35] VITALS: BP 131/84
[2017-06-13 21:12] VITALS: BP 146/86
[2017-06-14 04:41] VITALS: BP 137/84
[2017-06-14 07:21] LABS: CALCIUM 6.1 mg/dL (8.5-10.1); CARBON DIOXIDE 23.5 mmol/L (21-32); POTASSIUM SERUM 3.4 mmol/L (3.5-5.1)
[2017-06-14 07:26] LABS: CREATININE SERUM 8.2 mg/dL (0.7-1.3)
[2017-06-14 07:46] VITALS: BP 137/84
[2017-06-14 08:01] LABS: BASOPHIL % 0.6 % (0-2)
[2017-06-14 08:03] LABS: PLATELET COUNT 111 x10^3mcL (130-400); RED CELL DISTRIBUTION WIDTH 14.9 % (11.5-14.5)
[2017-06-14 09:05] VITALS: BP 150/92
[2017-06-14 09:16] LABS: rbc morphology (normal/abnorm) ABNORMAL (NORMAL)
[2017-06-14 12:55] VITALS: BP 145/92
[2017-06-14 17:05] VITALS: BP 147/86
[2017-06-14 21:50] VITALS: BP 125/77
[2017-06-15 05:42] VITALS: BP 124/73
[2017-06-15 06:39] LABS: CALCIUM 6.1 mg/dL (8.5-10.1); CARBON DIOXIDE 21.6 mmol/L (21-32); PHOSPHOROUS 5.4 mg/dL (2.5-4.9); POTASSIUM SERUM 3.4 mmol/L (3.5-5.1)
[2017-06-15 06:49] LABS: BASOPHIL % 0.7 % (0-2)
[2017-06-15 06:54] LABS: PLATELET COUNT 122 x10^3mcL (130-400)
[2017-06-15 07:02] LABS: rbc morphology (normal/abnorm) ABNORMAL (NORMAL)
[2017-06-15 07:46] LABS: CREATININE SERUM 8.9 mg/dL (0.7-1.3)
[2017-06-15 08:15] VITALS: BP 138/82
[2017-06-15 13:03] VITALS: BP 139/81
[2017-06-15 15:02] LABS: UA SPECIFIC GRAVITY 1.015 (1.005-1.035); microscopic required? YES; urine erythrocyte 2+ (NEGATIVE)
[2017-06-15] MEDS ORDERED: FERROUS SULFAT325 M2 PO ×3 (16:30→17:23)
[2017-06-15] MEDS ORDERED: LACTULOSE10 GM/152 PO ×2 (16:30→17:15)
[2017-06-15] MEDS ORDERED: VITC PO ×2 (16:30→17:16)
[2017-06-15] MEDS ORDERED: NEP PO ×2 (16:30→17:16)
[2017-06-15] MEDS ORDERED: PHOS PO ×2 (16:30→17:16)
[2017-06-15] MEDS ORDERED: OSCD PO ×2 (16:30→17:16)
[2017-06-15] MEDS ORDERED: NORCO1 TA1 PO (16:33)
[2017-06-15 16:53] VITALS: BP 139/81
[2017-06-15] MEDS ORDERED: LIPI20 PO (17:13)
[2017-06-15] MEDS ORDERED: NIFEDICAL XL30 MG PO (17:13)
[2017-06-15] MEDS ORDERED: METOPROLOL SUCC50 M2 PO (17:13)
[2017-06-15 17:42] VITALS: BP 134/92
== END 2017-06-15 18:28 | disposition home or self-care (01) | DRG 720 ==
LOC: ED 20:46 → IC 06-04 01:04 → DU 06-04 01:04 → IC 06-04 01:52 → DU 06-08 17:43
PROVIDERS: Emergency Medicine; Family Medicine; Internal Medicine; Internal Medicine Gastroenterology; Internal Medicine Nephrology; Student in an Organized Health Care Education/Training Program; ADMIT Family Medicine
PROC: 06L38CZ Occlusion of Esophageal Vein with Extraluminal Device, Via Natural or Artificial Opening Endoscopic (ICD-10-PCS; 2017-06-04)
PROC: 30233N1 Transfusion of Nonautologous Red Blood Cells into Peripheral Vein, Percutaneous Approach (ICD-10-PCS; 2017-06-04)
PROC: 05H533Z Insertion of Infusion Device into Right Subclavian Vein, Percutaneous Approach (ICD-10-PCS; 2017-06-04)
PROC: 5A1945Z Respiratory Ventilation, 24-96 Consecutive Hours (ICD-10-PCS; principal; 2017-06-04 15:45)
PROC: 0BH17EZ Insertion of Endotracheal Airway into Trachea, Via Natural or Artificial Opening (ICD-10-PCS; 2017-06-04 15:45)
PROC: 0W9G3ZZ Drainage of Peritoneal Cavity, Percutaneous Approach (ICD-10-PCS; 2017-06-05)
PROC: 05HM33Z Insertion of Infusion Device into Right Internal Jugular Vein, Percutaneous Approach (ICD-10-PCS; 2017-06-10)
PROC: 5A1D70Z Performance of Urinary Filtration, Intermittent, Less than 6 Hours Per Day (ICD-10-PCS; 2017-06-10)
PROC: 05PYX3Z Removal of Infusion Device from Upper Vein, External Approach (ICD-10-PCS; 2017-06-13)
DX: A41.9 Sepsis, unspecified organism (principal); J96.00 Acute respiratory failure, unspecified whether with hypoxia or hypercapnia; N17.0 Acute kidney failure with tubular necrosis; R65.21 Severe sepsis with septic shock; I85.11 Secondary esophageal varices with bleeding; J69.0 Pneumonitis due to inhalation of food and vomit; E44.0 Moderate protein-calorie malnutrition; K25.4 Chronic or unspecified gastric ulcer with hemorrhage; K76.6 Portal hypertension; I50.43 Acute on chronic combined systolic (congestive) and diastolic (congestive) heart failure; I13.2 Hypertensive heart and chronic kidney disease with heart failure and with stage 5 chronic kidney disease, or end stage renal disease; K70.31 Alcoholic cirrhosis of liver with ascites; E87.2 Acidosis; N18.5 Chronic kidney disease, stage 5; D62 Acute posthemorrhagic anemia; E87.1 Hypo-osmolality and hyponatremia; E83.51 Hypocalcemia; E83.39 Other disorders of phosphorus metabolism; E86.0 Dehydration; E87.6 Hypokalemia; F10.20 Alcohol dependence, uncomplicated; E78.5 Hyperlipidemia, unspecified; E66.9 Obesity, unspecified; Z68.32 Body mass index [BMI] 32.0-32.9, adult; Z87.891 Personal history of nicotine dependence
CPT/HCPCS: 36556; 36600; 43235; 80305; 82962; 83880; 85378; 86580; 87107; 94150; 97110-GP; 97116-GP; 97530-GP; A4301; A4628; C9113; G0480; J0171; J0330; J0610; J0696; J1170; J1200; J1610; J1642; J1644; J1815; J1885; J1940; J2001; J2060; J2250; J2270; J2310; J2354; J2370; J2405; J2704; J2765; J2916; J2930; J3010; J3370; J3475; J3480; J3490; J7030; J7040; J7042; J7050; J7120; P9016; Q0092

== ENCOUNTER → 2018-06-16 | Outpatient (CLI) | payer OTHER ==
[~2018-06-16] MED LIST changes: +FERROUS SULFAT325 M2 PO; +LACTULOSE10 GM/152 PO; +LIPI20 PO; +METOPROLOL SUCC50 M2 PO; +NEP PO; +NIFEDICAL XL30 MG PO; +NORCO1 TA1 PO; +OSCD PO; +PHOS PO; +VITC PO
== END | disposition home or self-care (01) ==
LOC: RD 13:34
DX: R76.11 Nonspecific reaction to tuberculin skin test without active tuberculosis (principal)